=== PATIENT | female | born 1960 | race Caucasian/White ===

== ENCOUNTER 2016-10-30 15:10 | Emergency (ER) | payer BC ==
[2016-10-30] MEDS ORDERED: Albuterol/Ipratropium NEB.SOL* Albuterol 2.5 MG/Ipratropium 0.5 MG 3 ML INH ONE (16:23)
--- NOTE | 2016-10-30 16:24 | UC ---
Respiratory Complaint HPI - HPI Summary HPI Summary: cough and upper respiratory c/o for 2 weeks right ear feels clogged - History of Current Complaint Chief Complaint: UCRespiratory Stated Complaint: CHEST COLD Time Seen by Provider: 10/30/16 16:17 Hx Obtained From: Patient ?: No Onset/Duration: Sudden Onset, Lasting Days - 2, Still Present Timing: Constant Severity Initially: Mild Severity Currently: Mild Pain Intensity: 3 Pain Scale Used: 0-10 Numeric Character: Cough: Nonproductive Aggravating Factors: Nothing Alleviating Factors: Nothing Associated Signs And Symptoms: Positive: Nasal Congestion - Allergies/Home Medications Allergies/Adverse Reactions: Allergies Allergy/AdvReac Type Severity Reaction Status Date / Time Amoxicillin Allergy Unknown Unknown Verified 05/05/15 10:20 Reaction Details environmental Allergy Congestion Uncoded 10/30/16 16:44 Home Medications: Home Medications Loratadine [Alavert] 10 mg PO DAILY PRN 10/30/16 [History Confirmed 10/30/16] PMH/Surg Hx/FS Hx/Imm Hx Previously Healthy: No Endocrine History Of: Denies: Diabetes, Thyroid Disease Cardiovascular History Of: Denies: Cardiac Disorders, Hypertension Respiratory History Of: Reports: Asthma Denies: COPD GI/ History Of: Denies: Ulcer - Surgical History Surgical History: Yes Surgery Procedure, Year, and Place: sinus surgery - Family History Known Family History: Positive: None Family History: no reported cardiovascular issues in family lineage - Social History Occupation: Employed Full-time Lives: With Family Alcohol Use: Occasionally Substance Use Type: None Smoking Status (MU): Heavy Every Day Tobacco Smoker Amount Used/How Often: 1/2 ppd Length of Time of Smoking/Using Tobacco: ~ 30 years Cessation Counseling: Counseled 3+Min - 10 Min Review of Systems Constitutional: Negative Skin: Negative Eyes: Negative ENT: Ear Ache, Nasal Discharge Respiratory: Cough Cardiovascular: Negative Gastrointestinal: Negative Genitourinary: Negative Motor: Negative Neurovascular: Negative Musculoskeletal: Negative Neurological: Negative Psychological: Negative All Other Systems Reviewed And Are Negative: Yes Physical Exam Triage Information Reviewed: Yes Appearance: Well-Appearing, No Pain Distress, Well-Nourished Vital Signs Reviewed: Yes Eye Exam: Normal Eyes: Positive: Conjunctiva Clear ENT Exam: Normal ENT: Positive: Normal ENT inspection, Hearing grossly normal, Pharynx normal, Nasal congestion, Nasal drainage, TMs normal - left, Other: - Right cerumen impaction. Negative: Tonsillar swelling, Tonsillar exudate, Trismus, Muffled/ hoarse voice Dental Exam: Normal Neck exam: Normal Neck: Positive: 1 Respiratory Exam: Normal Respiratory: Positive: Chest non-tender, Lungs clear, Normal breath sounds, No respiratory distress, No accessory muscle use Cardiovascular Exam: Normal Cardiovascular: Positive: RRR, No Murmur, Pulses Normal, Brisk Capillary Refill Musculoskeletal Exam: Normal Musculoskeletal: Positive: Strength Intact, ROM Intact, No Edema Neurological Exam: Normal Neurological: Positive: Alert, Muscle Tone Normal Psychological Exam: Normal Skin Exam: Normal Re-Evaluation - Re-Evaluation First Eval Change: Improved - 1, right ear flush by RN symptoms resolved 2. Neb assisted in the decrease of the broncho sparm (cough) Respiratory Course/Dx - Course Course Of Treatment: nicotine cesation information, flonase, albuterol and Zithromax at home follow with pcp and re-chexk in a few days - Differential Dx/Diagnosis Differential Diagnosis/HQI/PQRI: Asthma, Bronchitis, Lower Resp Infection, Sinusitis Provider Diagnoses: Bronchospasm, Bronchitis, nicotine dependant, ceremen imaction (resolved) right ear Discharge - Discharge Plan Condition: Stable Disposition: HOME Prescriptions: Albuterol HFA INHALER* [Ventolin HFA Inhaler*] 2 puff INH Q4H PRN #1 mdi PRN Reason: cough/chest tightness Azithromycin TAB* [Zithromax TAB (Z-KANDY) 250 mg #6 tabs] 2 tab PO SEE INSTRUCTIONS #1 kandy Fluticasone NASAL SPRAY 50MCG* [Flonase NASAL SPRAY 50MCG*] 2 spray BOTH NARES DAILY #1 btl Patient Education Materials: Albuterol (By breathing), Fluticasone (Into the nose), Azithromycin (By mouth), How to Use a Metered-Dose Inhaler (ED), How to Use Nasal [place] (ED), Cerumen Impaction (ED), How to Stop Smoking (ED) Referrals: No Primary Care Phys,NOPCP [Primary Care Provider] - Ximena Lee MD [Medical Doctor] - 2 Days
[2016-10-30 16:44] VITALS: BP 135/89
== END 2016-10-30 17:48 | disposition home or self-care (01) ==
LOC: UCCORT 15:10
DX: J20.9 Acute bronchitis, unspecified (principal); H61.23 Impacted cerumen, bilateral; Z88.0 Allergy status to penicillin; F17.210 Nicotine dependence, cigarettes, uncomplicated; Z71.6 Tobacco abuse counseling
CPT/HCPCS: 99213; A9270-GY; G0463

== ENCOUNTER 2018-01-07 16:59 | Emergency (ER) | payer BC ==
[2018-01-07 17:12] VITALS: BP 128/68
--- NOTE | 2018-01-07 17:20 | UC ---
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 " She was seen here in 10/19 with similar symptoms. She was given albuterol and Z- Kandy with good results. She continues to smoke. Denies any known history of emphysema. No known asthma. She does have nasal congestion. No sinus pain currently but did prior that resolved. No fevers or chills. Unable to use Flonase because of floral scent. - History of Current Complaint Chief Complaint: UCRespiratory Stated Complaint: COUGH, CONGESTION Time Seen by Provider: 01/07/18 17:19 Hx Last Menstrual Period: n/a Pain Intensity: 0 - Allergies/Home Medications Allergies/Adverse Reactions: Allergies Allergy/AdvReac Type Severity Reaction Status Date / Time amoxicillin Allergy Unknown Verified 01/07/18 17:13 Reaction Details environmental Allergy Congestion Uncoded 01/07/18 17:13 PMH/Surg Hx/FS Hx/Imm Hx Previously Healthy: Yes - Surgical History Surgical History: Yes Surgery Procedure, Year, and Place: sinus surgery - Family History Known Family History: Positive: Hypertension Family History: no reported cardiovascular issues in family lineage - Social History Alcohol Use: Occasionally Alcohol Amount: 4 Substance Use Type: None Smoking Status (MU): Heavy Every Day Tobacco Smoker Amount Used/How Often: 1/2 ppd Length of Time of Smoking/Using Tobacco: ~ 30 years Review of Systems Constitutional: Negative Skin: Negative Eyes: Negative ENT: Nasal Discharge, Sinus Congestion Respiratory: Cough Cardiovascular: Negative Gastrointestinal: Negative Genitourinary: Negative Motor: Negative Neurovascular: Negative Musculoskeletal: Negative Neurological: Negative Psychological: Negative Is Patient Immunocompromised?: No All Other Systems Reviewed And Are Negative: Yes Physical Exam Triage Information Reviewed: Yes Appearance: Well-Appearing, No Pain Distress, Well-Nourished - no cough at all during OV. very pleasant Vital Signs: Initial Vital Signs Temp 99.1 F 01/07/18 17:07 Pulse 77 01/07/18 17:07 Resp 16 01/07/18 17:07 BP 128/68 01/07/18 17:07 Pulse Ox 94 01/07/18 17:07 Vital Signs Reviewed: Yes ENT Exam: Normal ENT: Positive: Pharyngeal erythema - + PND. no exudate, TMs normal. Negative: Sinus tenderness Neck exam: Normal Neck: Positive: Supple, Nontender, No Lymphadenopathy Respiratory: Positive: Decreased breath sounds, Wheezing - throughout. mild.. Negative: No accessory muscle use, Crackles, Rhonchi, Stridor Cardiovascular Exam: Normal Cardiovascular: Positive: RRR, No Murmur, Pulses Normal Abdomen Description: Positive: Nontender, Soft Musculoskeletal Exam: Normal Neurological Exam: Normal Psychological Exam: Normal Skin Exam: Normal Throat Pain/Nasal Course/Dx - Course Course Of Treatment: Bronchitis. Likely w/ COPD. recommend f/u w/ PCP to explore testing for COPD. she is agreeable. - Differential Dx/Diagnosis Differential Diagnosis/HQI/PQRI: Pharyngitis, URI Provider Diagnoses: Bronchitis Discharge - Sign-Out/Discharge Documenting (check all that apply): Discharge/Admit/Transfer - Discharge Plan Condition: Stable Disposition: HOME Prescriptions: Albuterol HFA INHALER* [Ventolin HFA Inhaler*] 2 puff INH Q4H PRN #1 mdi PRN Reason: cough/chest tightness Azithromyxin KANDY (NF) [Z-Kandy (Zithromax) 250 mg tabs #6] 2 tab PO .TODAY, THEN 1 DAILY #6 tab methylPREDNISolone [Medrol Dosepak 4 MG*] 4 mg PO DAILY #1 kandy Patient Education Materials: Acute Bronchitis (ED) Referrals: No Primary Care Phys,NOPCP [Primary Care Provider] - [facility] [Provider Group] - 7 Days Additional Instructions: -Make sure to take a probiotic daily while on antibiotics to help prevent a potential complication of antibiotic use called c diff. Some well known brands that can be found OTC are florastor, [employer] and Ascade. Make sure to complete the entire prescription unless advised otherwise by your health care provider. -We discussed risks of prednisone including but not limited to anxiety, agitation, insomnia, GI upset, elevated blood pressures and blood sugar readings , adrenal crisis and avascular necrosis of the hip. - Billing Disposition and Condition Condition: STABLE Disposition: Home
== END 2018-01-07 17:42 | disposition home or self-care (01) ==
LOC: UCCORT 16:59
DX: J40 Bronchitis, not specified as acute or chronic (principal); F17.210 Nicotine dependence, cigarettes, uncomplicated; Z88.0 Allergy status to penicillin
CPT/HCPCS: 99212; G0463

== ENCOUNTER 2018-10-01 18:08 | Emergency (ER) | payer BC ==
[2018-10-01] MEDS ORDERED: methylPREDNISolone 125 MG* 2 ML VIAL IV ONE (18:24)
--- NOTE | 2018-10-01 18:30 | UC ---
Shortness of Breath HPI - HPI Summary HPI Summary: 57 year old female with 30years of 1/2 PPD smoking history here with complaint of URI symptoms and sob that started today. Reports rhinorrhea, cough and subjective fever. Today she reports SOB with no chair. No orthopnea but reports dypsnea since yesterday. She denies chest pain. - History of Current Complaint Chief Complaint: UCRespiratory Stated Complaint: COUGH,CONGESTION,SOB Time Seen by Provider: 10/01/18 18:23 Hx Obtained From: Patient Hx Last Menstrual Period: N/A Onset/Duration: Sudden Onset Current Severity: None Dyspnea At: Rest Associated Signs & Symptoms: Positive: Cough (Productive) - Allergy/Home Medications Allergies/Adverse Reactions: Allergies Allergy/AdvReac Type Severity Reaction Status Date / Time amoxicillin Allergy Unknown Verified 10/01/18 18:28 Reaction Details environmental Allergy Congestion Uncoded 10/01/18 18:28 PMH/Surg Hx/FS Hx/Imm Hx Previously Healthy: Yes - Surgical History Surgical History: Yes Surgery Procedure, Year, and Place: sinus surgery - Family History Known Family History: Positive: None, Hypertension Family History: no reported cardiovascular issues in family lineage - Social History Alcohol Use: Occasionally Alcohol Amount: 4 Substance Use Type: None Smoking Status (MU): Heavy Every Day Tobacco Smoker Type: Cigarettes Amount Used/How Often: > 1/2 ppd Length of Time of Smoking/Using Tobacco: ~ 30 years Review of Systems All Other Systems Reviewed And Are Negative: Yes ENT: Positive: Nasal Discharge, Sinus Congestion, Sinus Pain/Tenderness Respiratory: Positive: Shortness Of Breath, Cough Gastrointestinal: Positive: Negative Motor: Positive: Negative Musculoskeletal: Positive: Negative Is Patient Immunocompromised?: Yes Physical Exam Triage Information Reviewed: Yes Appearance: Other: Vital Signs: Initial Vital Signs Temp 37.7 C 10/01/18 18:20 Pulse 105 10/01/18 18:20 Resp 24 10/01/18 18:20 BP 138/100 10/01/18 18:20 Pulse Ox 82 10/01/18 18:20 Vital Signs Reviewed: Yes ENT: Positive: Normal ENT inspection Neck: Positive: Supple Respiratory: Positive: Accessory muscle use, Wheezing Cardiovascular: Positive: No Murmur, Tachycardia Abdominal Exam: Normal Musculoskeletal Exam: Normal Neurological Exam: Normal Psychological Exam: Normal Diagnostics - EKG Cardiac Rate: NL Cardiac Rhythm: Sinus: Normal - [address] Segment: Normal Shortness of Breath Dx - Course Course Of Treatment: SOB ddx Undiagnosed COPD exacerbation vs. pneumonia vs. Pulmonary edema Patient sent to the ED via ambulance after she received IV steroids, nebs and oxygen. Signed out to Dr. Amol Kang. Her vitals upon transfer were 99.7 138/78 103 24 96% on 4L - Differential Dx/Diagnosis Differential Diagnosis/HQI/PQRI: COPD Exacerbation, Pneumonia, Pulmonary Edema Provider Diagnosis: SOB (shortness of breath) Discharge - Sign-Out/Discharge Documenting (check all that apply): Patient Departure All imaging exams completed and their final reports reviewed: No Studies - Discharge Plan Condition: Stable Disposition: TRANS HIGHER LVL OF CARE FAC Referrals: No Primary Care Phys,NOPCP [Primary Care Provider] - - Billing Disposition and Condition Condition: STABLE Disposition: Trans Higher Lvl of Care Fac
[2018-10-01] MEDS ORDERED: Albuterol/Ipratropium NEB.SOL* Albuterol 2.5 MG/Ipratropium 0.5 MG 3 ML INH ONE (18:33)
[2018-10-01] MEDS ORDERED: Albuterol/Ipratropium NEB.SOL* Albuterol 2.5 MG/Ipratropium 0.5 MG 3 ML ONE (18:34)
[2018-10-01 18:58] VITALS: BP 138/78
== END 2018-10-01 19:00 | disposition short-term general hospital (02) ==
LOC: UCCORT 18:08
DX: R06.02 Shortness of breath (principal); R05 Cough; R09.89 Other specified symptoms and signs involving the circulatory and respiratory systems; R50.9 Fever, unspecified; R00.0 Tachycardia, unspecified; R09.81 Nasal congestion; F17.210 Nicotine dependence, cigarettes, uncomplicated; Z88.0 Allergy status to penicillin; Z91.09 Other allergy status, other than to drugs and biological substances
CPT/HCPCS: 93005; 96374; 99213; A9270-GY; G0463; J2930